=== PATIENT | female | born 1945 | race Caucasian/White ===

== ENCOUNTER 2018-05-04 19:12 | Inpatient (IN) | payer MEDICARE ==
[~2018-05-04] VITALS: Ht 160 cm; Wt 83.0 kg
--- NOTE | ~2018-05-04 | CON ---
[address] [address] CONSULTATION Name: HARPAL HUNTER Room: 211-P ADM IN M.R.#: [id number] Admission: 05/04/18 Attend Phys: Jeremy Delgado Discharge: Date of : 43 Report #: [id number] THIS REPORT FOR: //name// CC: FAM physician/PCP Alvaro Fish DATE OF SERVICE: 05/09/2018 ROOM NUMBER: 211-P ATTENDING PHYSICIAN: Chris Aaron MD DIAGNOSIS: Superior vena cava syndrome; highly suspicious for malignant neoplasm. HISTORY OF PRESENT ILLNESS: Radiation Oncology consultation has been requested in this 73-year-old female admitted to [facility] with symptoms of increasing shortness of air and facial swelling. CT of the chest with IV contrast 05/04/2018 revealed a right upper mediastinal and hilar mass with mediastinal lymphadenopathy and compression of the superior vena cava. Additional studies included a CT of the abdomen and pelvis showing no evidence of metastatic disease. However, a sclerotic appearance was noted to the L3 vertebral body. Bone scan revealed solitary uptake at L3 felt to be nonspecific. MRI of the brain 05/07/2018, noted several small enhancing foci suspicious for brain metastasis. This could also represent small infarcts. The largest measured 8 mm. No surrounding edema. The patient underwent stent placement in her superior vena cava on 05/07/2018. Her facial swelling promptly resolved and her breathing improved. She is scheduled for biopsy on 05/10/2018. We are asked to see her to discuss the role of radiation therapy. PAST MEDICAL/SURGICAL HISTORY: COPD; coronary artery disease, status post placement of right coronary artery stent; status post cardiac catheterization; hypertension. No prior cancer, no prior chemotherapy or radiation therapy, no pacemaker, no autoimmune disorder. ALLERGIES: PENICILLIN. MEDICATIONS: On admission, please see the patient chart. She has been on home O2, 4 liters nasal cannula for 5-6 years. SOCIAL HISTORY: The patient is . She has 3 sons. She is a former smoker, 30 years (44-[id number]-[id number] history), discontinued several years ago. 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 FAMILY HISTORY: Mother had cervix cancer. Father, prostate cancer. [place] [address] CONSULTATION Name: HARPAL HUNTER Room: [address]#: [id number] Admission: 05/04/18 Attend Phys: Jeremy Delgado Discharge: Date of : 43 Report #: [id number] REVIEW OF SYSTEMS: A 12-point review of systems is reviewed and otherwise negative including no unusual headaches, seizures, weight loss or bone pain. She has chronic low back pain. PHYSICAL EXAMINATION: GENERAL: The patient is a well-developed, well-nourished female in no acute distress at rest. She is wearing O2 per nasal cannula. HEENT: Unremarkable. NECK: Without lymphadenopathy or thyromegaly. LUNGS: Diminished breath sounds bilaterally, otherwise clear. CARDIOVASCULAR: Regular rate and rhythm without murmur. Mild collateral circulation on the anterior chest wall noted. ABDOMEN: Soft and nontender. No masses or organomegaly. MUSCULOSKELETAL: No back or bony percussion tenderness. EXTREMITIES: No lymphedema. NEUROLOGIC: Nonfocal. SKIN: No unusual bruises or rash. LYMPH NODE ASSESSMENT: No palpable lymphadenopathy. RADIOGRAPHIC DATA: Please see above for results of her CT scan of the chest, abdomen, and pelvis, bone scan and MRI of the brain. In addition, the patient had bilateral mammograms showing skin thickening diffusely, right greater than left, which was nonspecific, could be related to the patient's mediastinal tumor and SVC syndrome. Lower extremity venous Doppler showed no evidence of DVT. LABORATORY DATA: CBC on admission, WBC is 4.1, hemoglobin 11.7, hematocrit 37.5, platelet count 300K. Chemistry profile within normal range; slightly elevated AST 77. PFTS: Office spirometry, FEV1 of 0.8, 39% of predicted, FEV1/FVC 47%, has been on O2 approximately 5 years. IMPRESSION: Large right mediastinal mass with superior vena cava syndrome, suspicious for neoplasm. Biopsy scheduled for 05/10/2018. MRI of the brain showing possible small metastasis, but could not rule out infarcts, will need close surveillance followup. Sclerotic L3 vertebral body, will also need close followup. RECOMMENDATIONS: We will await pathology report. Once pathology is available, we will need a treatment plan for her SVC syndrome. We will follow her brain lesions closely with repeat MRI in 6-8 weeks. I will give her a followup appointment as an outpatient. [address] [place] [address] CONSULTATION Name: HARPAL HUNTER Room: [address] IN M.R.#: [id number] Admission: 05/04/18 Attend Phys: Jeremy Delgado Discharge: Date of : 43 Report #: [id number] Thank you for the opportunity to see this patient in consultation. By: [id number] [id number] Maldonado MD /nt
[2018-05-04 19:16] VITALS: BP 194/85
[2018-05-04] MEDS ORDERED: BISOPROLOL FUMAR5 MG PO (19:41)
[2018-05-04] MEDS ORDERED: COZAAR 25 MG TA25 M1 PO (19:42)
[2018-05-04] MEDS ORDERED: CLONAZEPAM 1 MG1 M1 PO (19:43)
[2018-05-04] MEDS ORDERED: ASPIR 8181 MG PO (19:43)
[2018-05-04] MEDS ORDERED: VENTOLIN HFA 1818 GM INH (19:44)
[2018-05-04] MEDS ORDERED: MUCINEX600 MG PO (19:46)
[2018-05-04 20:10] LABS: ABSOLUTE BASOPHILS 0.1 thou/uL (0.0-0.2); ABSOLUTE EOSINOPHILS 0.3 thou/uL (0.0-0.7); ABSOLUTE LYMPHOCYTES 2.1 thou/uL (0.8-5.3); ABSOLUTE NEUTROPHILS 7.5 thou/uL (1.6-8.1); BASOPHILS 0.5 %; EOSINOPHILS 2.5 %; HEMATOCRIT 37.5 % (37.0-47.0); HEMOGLOBIN 11.7 gm/dL (12.0-15.0); LYMPHOCYTES 19.4 %; MCH 27.9 pg (26.0-34.0); MCHC 31.2 g/dL (28.0-37.0); MCV 89.4 fL (80.0-100.0); MONOCYTES 9.1 %; MPV 8.4 fl. (7.2-11.1); NUCLEATED RBCS 0 /100WBC; PLATELET COUNT* 300 thou/uL (150-400); POLYS 68.5 %; RBC 4.19 mil/uL (4.20-5.00); RDW-CV 14.3 % (10.5-14.5); WBC 10.9 thou/uL (4.0-11.0)
[2018-05-04 20:17] LABS: BE 9.4 mmol/L (-2 to +3); HCO3 38.3 mmol/L (22.0-26.0); PO2 101.7 mmHg (75.0-100.0); pH 7.318 (7.340-7.450)
[2018-05-04 20:19] LABS: PCO2 76.4 mmHg (35.0-45.0)
[2018-05-04 20:19] LABS: ANION GAP 0 mmol/L (7-16); BUN 10 mg/dL (7-18); CALCIUM 9.6 mg/dL (8.5-10.1); CHLORIDE 97 mmol/L (98-107); CO2 40 mmol/L (21-32); CREATININE 0.5 mg/dL (0.6-1.3); GLUCOSE 110 mg/dL (70-99); POTASSIUM 3.9 mmol/L (3.5-5.1); SODIUM 137 mmol/L (136-145)
[2018-05-04 20:21] LABS: APTT 26.1 Seconds (25.0-31.3); PROTIME 10.6 Seconds (9.20-11.50)
[2018-05-04 20:29] LABS: ALBUMIN 3.1 g/dL (3.4-5.0); ALKALINE PHOSPHATASE 128 U/L (46-116); MAGNESIUM 1.6 mg/dL (1.8-2.4); NT-PRO BRAIN NAT PEPTIDE 146 pg/mL (<300); SGOT 77 U/L (15-37); SGPT 53 U/L (30-65); TOTAL BILIRUBIN 0.3 mg/dL (<0.1-1.0); TOTAL PROTEIN 7.6 g/dL (6.4-8.2); TROPONIN-I LEVEL <0.06 ng/mL (<0.06)
[2018-05-04 22:39] VITALS: BP 145/59
[2018-05-04] MEDS ORDERED: CLONIDINE0.1 PO (23:13)
[2018-05-04] MEDS ORDERED: VITAMIN D5000 UNIT PO (23:14)
[2018-05-04 23:15] VITALS: BP 148/56
[2018-05-04] MEDS ORDERED: BYSTOLIC 5 MG5 M1 PO (23:16)
--- NOTE | 2018-05-05 02:57 | NUR ---
ASSUMED CARE OF PT AT 2300 FROM THE ER. PT IS ALERT AND ORIENTED. VSS. NO COMPLAINTS OF PAIN. PT REPORTS SOA. PT HAS BIPAP ON AT THIS TIME AND IS TOLERATING WELL. PT IS IN SINUS RYTHM ON THE TELEMETRY. PT IS RESTING COMFORTABLY IN BED. RESPIRATIONS ARE EVEN AND NONLABORED. WILL CONTINUE TO MONITOR PT.
[2018-05-05 04:00] VITALS: BP 127/62
[2018-05-05 06:27] LABS: BE 5.4 mmol/L (-2 to +3); HCO3 33.2 mmol/L (22.0-26.0); PO2 70.5 mmHg (75.0-100.0)
[2018-05-05 08:00] VITALS: BP 145/59
--- NOTE | 2018-05-05 08:00 | NUR ---
PT RESTING IN BED, APPEARS ALERT O X 4, DENIES CHEST PAIN, SOB, PAIN OR DISCOMFORT, ON BIPAP, 35% fIO2, PIV R AC, SL
--- NOTE | 2018-05-05 10:40 | NUR ---
DR WHITAKER roundmaura, states okay to stay off bipap, tke rx, go for radiology
--- NOTE | 2018-05-05 10:55 | EKG ---
[place] [address] ELECTROCARDIOGRAM REPORT Name: HARPAL HUNTER Room: [address] ADM IN .R.#: [id number] Admission: 05/04/18 Attend Phys: Jeremy Delgado Discharge: Date of : 43 Report #: [id number] THIS REPORT FOR: //name// [facility] ED Test Date: 2018-05-04 Test Time: 19:55:34 Pat Name: HARPAL HUNTER Department: Room: [facility] Gender: F Rehab Department Manager: ROGER : 1945 Requested By: Trisha Overton Order Number: [id number] MD: Claudio Jaramillo Measurements Intervals [place] Rate: 85 P: 64 LA: 136 QRS: -87 QRSD: 129 T: 33 QT: 402 QTc: 478 Interpretive Statements Sinus rhythm RBBB and LAFB Borderline ST elevation, lateral leads No previous ECG available for comparison Electronically Signed On 05-05-2018 10:55:05 CDT by Claudio Jaramillo [email or web address] <ELECTRONICALLY SIGNED> By: Claudio Jaramillo MD, [facility] 05/05/18 1055 54 54 Claudio Jaramillo MD, [facility] /EPI
[2018-05-05 12:00] VITALS: BP 183/69
--- NOTE | 2018-05-05 13:52 | NUR ---
Pt is A&O. Resides at home with her . Independent with ADLs. Pt wears home o2 continuous. No hx of HH or SNF. Supportive family that is invovled in POC. [place] Joaquin following.
[2018-05-05 14:00] VITALS: BP 155/61
[2018-05-05 16:25] LABS: BE 8.8 mmol/L (-2 to +3); HCO3 37.3 mmol/L (22.0-26.0); PO2 90.5 mmHg (75.0-100.0); pH 7.331 (7.340-7.450)
[2018-05-05 16:26] LABS: PCO2 72.2 mmHg (35.0-45.0)
[2018-05-05 20:30] VITALS: BP 162/84
[2018-05-06] VITALS (7 sets, daily range): BP systolic 126–158; BP diastolic 49–85
--- NOTE | 2018-05-06 02:14 | NUR ---
ASSUMED CARE OF PT AT 1900. PT IS ALERT AND ORIENTED. VSS. PERLAM. PT IS ON 4 LITERS OF O2 WHILE AWAKE. PT IS ON BIPAP WHILE SLEEPING. PT IS IN SINUS RYTHM ON THE TELEMETRY. PT IS SLEEPING QUIETLY IN BED. RESPIRATIONS ARE EVEN AND NONLABORED. WILL CONTINUE TO MONITOR PT.
[2018-05-06 06:03] LABS: HEMATOCRIT 35.7 % (37.0-47.0); HEMOGLOBIN 11.2 gm/dL (12.0-15.0); MCH 28.3 pg (26.0-34.0); MCHC 31.4 g/dL (28.0-37.0); MCV 90.3 fL (80.0-100.0); MPV 8.4 fl. (7.2-11.1); RBC 3.95 mil/uL (4.20-5.00); RDW-CV 14.2 % (10.5-14.5); WBC 9.5 thou/uL (4.0-11.0)
[2018-05-06 06:14] LABS: ALBUMIN 2.8 g/dL (3.4-5.0); CALCIUM 9.3 mg/dL (8.5-10.1); CREATININE 0.8 mg/dL (0.6-1.3); MAGNESIUM 1.6 mg/dL (1.8-2.4); POTASSIUM 4.2 mmol/L (3.5-5.1); TOTAL BILIRUBIN 0.2 mg/dL (<0.1-1.0); TOTAL PROTEIN 7.2 g/dL (6.4-8.2)
[2018-05-06 06:15] LABS: BE 8.2 mmol/L (-2 to +3); HCO3 36.3 mmol/L (22.0-26.0); pH 7.335 (7.340-7.450)
[2018-05-06 06:22] LABS: PCO2 69.6 mmHg (35.0-45.0); PO2 56.4 mmHg (75.0-100.0)
--- NOTE | 2018-05-06 08:19 | CON ---
[address] [address] CONSULTATION Name: TRENTONCARMINEHARPAL G Room: [address] IN M.R.#: [id number] Admission: 05/04/18 Attend Phys: Jeremy Delgado Discharge: Date of : 43 Report #: [id number] THIS REPORT FOR: //name// CC: DALILA physician/PCP Alvaro Fish REQUESTING PHYSICIAN: Dr. Flores. REASON FOR CONSULTATION: Abnormal CAT scan, COPD. DISCUSSION: The patient is a 73-year-old woman who is known to me from the office. She has a history of very severe COPD. She is O2, though has not been steroid dependent. She has normally gotten most of her care over at [facility]. We do not have any records on her here at [facility]. She has a history of very severe COPD. Last spirometry done in our office revealed an FEV1 of only 0.80, which was 39% of predicted. Her FEV1/FVC ratio is 47%. Mid flows were severely decreased. At home, she is managed with a Ventolin inhaler. She does do occasionally 3 puffs every 4 hours. She has been intolerant to all anticholinergics I have given her in the past. She has also had issues with albuterol via nebulizer, so she rarely uses that. She has intermittently not tolerated oral steroids well. She has had intermittent cramps, also complains of diarrhea coming from that. Besides her severe COPD, she also has a history of coronary artery disease. Has had stents placed in the past. She did have a followup cardiac catheterization done in February of this year. This was done because of dyspnea and possible angina, showed her right coronary stent was patent, no other occlusive disease was noted. She did have a chest x-ray done also in February. Raised a question of developed some mild vascular congestion. She also has a history of hypertension. She is not on any anticholinergics. Has had issues with significant epistaxis in the past requiring packing. SOCIAL HISTORY: She is . Former smoker, quit in 2014. Has over 42-lvsk-frsd smoking history. 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 FAMILY HISTORY: Positive for asthma, ovarian cancer. REVIEW OF SYSTEMS: A 12-point ROS was done. Note positives above. She had increasing shortness of breath. Describes feeling that she is "drowning." Has not had much in the way of cough or sputum production. She denies any difficulty swallowing. She has had some periods [place] [address] CONSULTATION Name: HARPAL HUNTER Room: [address] IN ..#: [id number] Admission: 05/04/18 Attend Phys: Jeremy Delgado Discharge: Date of : 43 Report #: [id number] triggered her visit to the ED. Denies any falls. She has not had any difficulty swallowing. At times, she may have trouble with very large pills. Her appetite has been good. Generally, her weight has been stable. She had gained weight after she quit smoking, but had been able to lose some that was all intentional. She has noted some lower extremity edema. PHYSICAL EXAMINATION: GENERAL: She is seen in her room. Just been taken off BiPAP. Has O2 running via nasal cannula. She is alert, conversant, and able to speak in full sentences. She is somewhat emotional. HEENT: Head is normocephalic and atraumatic. Sclerae nonicteric. Mucous membranes do look a little dry. NECK: Negative for adenopathy. May have just some minimal neck vein fullness. Has just minimal vessel seen anterior chest wall. Does not appear to have much edema in her upper neck and upper extremities. HEART: Regular rate. She is mildly tachycardic. No S3 is heard. Grade 1/6 systolic murmur. LUNGS: Show breath sounds to be diminished. She has a prolonged expiratory phase. She has some inspiratory and expiratory wheezes heard bilaterally. No chest wall abnormalities are noted. No CVA tenderness. ABDOMEN: Soft. No appreciable hepatosplenomegaly is noted. Radial pulses are present. LOWER EXTREMITIES: She does have some trace pretibial edema. SKIN: Warm and dry. NEUROLOGIC: She is alert and oriented x 3. LABORATORY AND X-RAY FINDINGS: A CT of her chest was reviewed. I have also reviewed that with Dr. Hurley who was the reading radiologist. She does have a very large mass seen in the right upper mediastinal area and right hilar mass. She does have some narrowing of the superior vena cava. Does appear to be compressing the SVC, though it is not completely occluded. No PE seen. Has emphysematous changes noted throughout. No pleural effusions are noted. White blood cell count is 10,900, hemoglobin 11.7. Differential was unremarkable. On her chemistry, potassium is 3.9, BUN of 10, creatinine of 0.5. Lactic acid 0.6. AST 77, ALT 53, alkaline phosphatase 128. ProBNP was 146. Albumin 3.1. Blood cultures were sent. IMPRESSION: 1. Large mediastinal/right hilar mass. Appearance is highly worrisome for malignancy. With her long smoking history, primarily I am concerned this could represent a lung cancer. Whether could also be a lymphoma, though I find that less likely. Has compression of the superior vena cava, though does not have a joseph superior vena cava syndrome at this time. 2. Very severe chronic obstructive pulmonary disease. Her O2 though has not been steroid dependent. Hypercapnia noted, some of which is chronic. 3. Coronary artery disease. Recent cardiac catheterization did not reveal any [facility] [address] [place] [address] CONSULTATION Name: HARPAL HUNTER Room: [address] IN [facility]#: [id number] Admission: 05/04/18 Attend Phys: Jeremy Delgado Discharge: Date of : 43 Report #: [id number] significant occlusive disease. PLAN: 1. Discussed with Dr. Hurley. He does believe he would be able to biopsy this lesion. She is a poor candidate for bronchoscopy given the sedation that would be required with her hypercapnia. 2. Continue bronchodilator therapy at this time. We will use straight albuterol. She has been intolerant to anticholinergics in the past. 3. Follow up blood gases. 4. She is now quite anxious to be discharged. I will see how she does. Get the biopsy done and hopefully discharge shortly within 24 hours depending on how she does. We will need Oncology followup once catheterization is finalized. 5. I was able also to discuss briefly with her . <ELECTRONICALLY SIGNED> By: Anamaria Beard MD 05/06/18 0819 1044 1952MD shey Francois
--- NOTE | 2018-05-06 09:55 | NUR ---
ASSUMED CARE OF PT THIS AM AROUND 0715- COMMERCIAL REPRESENTATIVE IN PLACE ORDERED, TRACING SR- UPON ASSESSMENT PT NOTED TO BE SITTING UP IN BED SIDE CHAIR, AT SIDE VISITING- PT A&O X4- CONTINENT OF BOWEL AND BLADDER- ASSIST X1 WITH RW FOR TRANSFERS- DIMINISHED LUNG SOUNDS NOTED, RESP EVEN AND [id number]-EXS, O2 SAT 93% ON 4L VIA NC-ABODMEN SOFT/ROUND/NON-TENDER, BS X4 QUADS- PT REPORTS TO HAVE HAD BM THIS AM- IV NOTED TO RIGHT AC INTACT, IVF INFUSSING PRESCIBED- IV ABT GIVEN THIS AM PRESCIBED, NO ADVERSE REACTIONS TO NOTE- PORT/CATH TO BE PLACED ALONG WITH SVC R/T LUNG MASS, UNABLE TO COMPLETE TILL PT OFF ALL BLOOD THINNERS X5 DAYS- ASPIRIN NOTED TO HAVE BEEN D/C' 05/05/18- LOVENOX D/C'D THIS AM- BONE SCAN TO BE COMPLETED TODAY ORDERED- MG NOTED TO BE 1.6 THIS AM, CURRENLTY BEING REPLACED PER PROTOCOL- PT DENIES ANY C/O PAIN/DISCOMOFRT AT THIS TIME- CALL LIGHT AND PERSONAL BELONGINGS WITH IN REACH- HOURLY ROUNDS IN PLACE R/T SAFETY/NEEDS- ALL NEEDS MET AT THIS TIME-WCTM
--- NOTE | 2018-05-06 14:10 | NUR ---
CM spoke with pulm regarding Pt needing a trilogy. Spoke with Celina at [facility] and faxed trilogy referral. Following.
--- NOTE | 2018-05-06 16:46 | NUR ---
PT BRAXTON RESTING IN BED SIDE CHAIR, AT SIDE- SENIOR FIRMWARE ENGINEER IN PLACE ORDERED, TRACING SR/ST THIS SHIFT- IV TO RIGHT AC NOTED TO FALL OUT WITH NEW IV 20 GAUGE PLACED TO RIGHT FA- IVF D/C'D THIS SHIFT- MG REPLACED THIS SHIFT PER PROTOCOL WITH REDRAW AT 1453 NOTED TO BE WNL AT 1.9- BONE SCAN AND CHEST X-RAY COMPELTED THIS SHIFT ORDERED, RESULTS NOTED IN MEDITECH- SOLU-MED DECREASED THIS SHIFT PER PULMONARY THIS SHIFT- GOOD PO INTAKE NOTED THIS SHIFT WITH MEALS- DENIES ANY C/O PAIN/DISCOMFORT AT THIS TIME- CONTINUES ON 4L VIA NC INDICATED- CALL LIGHT AND PERSONAL BELONGINGS WITH IN REACH- MAKES NEEDS KNOWN- ALL NEEDS MET AT THIS TIME-WCTM
[2018-05-07] VITALS (20 sets, daily range): BP systolic 110–185; BP diastolic 47–95
--- NOTE | 2018-05-07 05:00 | NUR ---
ASSUMED CARE OF PT AT 1900. PT IS ALERT AND ORIENTED. VSS. PERRLA. NO COMPLAINTS OF PAIN. UP WITH A WALKER AND STAND BY ASSIST. PT IS ON 4 LITERS O2 WHILE AWAKE AND BIPAP WHILE ASLEEP. PT HAS BEEN WEARING BIPAP THROUGHOUT THE NIGHT. PT IS IN SINUS RYTHM ON THE TELEMETRY. PT IS RESTING COMFORTABLY IN BED. RESPIRATIONS ARE EVEN AND NONLABORED. WILL CONTINUE TO MONITOR PT.
[2018-05-07 05:07] LABS: HEMOGLOBIN 11.3 gm/dL (12.0-15.0); MCH 28.2 pg (26.0-34.0); MCHC 31.3 g/dL (28.0-37.0); MCV 90.2 fL (80.0-100.0); MPV 8.8 fl. (7.2-11.1); RBC 3.99 mil/uL (4.20-5.00); RDW-CV 14.6 % (10.5-14.5); WBC 17.3 thou/uL (4.0-11.0)
[2018-05-07 05:15] LABS: ANION GAP < 0 mmol/L (7-16); BUN 21 mg/dL (7-18); CALCIUM 9.9 mg/dL (8.5-10.1); CHLORIDE 99 mmol/L (98-107); CREATININE 0.8 mg/dL (0.6-1.3); GLUCOSE 111 mg/dL (70-99); POTASSIUM 3.8 mmol/L (3.5-5.1); SODIUM 137 mmol/L (136-145)
[2018-05-07 05:20] LABS: CO2 40 mmol/L (21-32)
--- NOTE | 2018-05-07 10:07 | NUR ---
ASSUMED CARE OF PT THIS AM AROUND 714- DIRECTOR PACKAGING IN PLACE ORDERED, TRACING SR- UPON ASSESSMENT PT NOTED TO BE UP IN BED SIDE CHAIR, WATCHING TV- PT A&O X3 WITH FORGETFULLNESS NOTED- CONTINENT OF BOWEL AND BLADDER- ASSIST X1 WITH RW FOR TRANSFERS- COURSE LUNG SOUNDS WITH OCCASSIONAL COUGH, SMALL COPIOUS SPUTUM NOTED- RESP EVEN AND UN-LABORED- VSS, O2 SAT 96% ON 4L VIA NC- ABDOMEN SOFT/ROUND/NON-TENDER, BS X4 QUADS- LAST BM REPORTED THIS AM- IV NOTED TO RIGHT FA INTACT AND SL- PT OFF UNIT MOST THIS AM HAVING PROCEDURES COMPLETED ORDERED- XANAX ORDERED PRE MRI R/T REPORTED CLOSTERPHOBIA- PT DENIES ANY C/O PAIN/DISCOMFORT THIS AM- ALL NEEDS MET AT THIS TIME-WCTM
--- NOTE | 2018-05-07 10:22 | NUR ---
Pt's trilogy will be delivered this afternoon
--- NOTE | 2018-05-07 14:58 | CON ---
[address] [address] CONSULTATION Name: TRENTONCARMINEHARPAL G Room: [address] IN ..#: [id number] Admission: 05/04/18 Attend Phys: Jeremy Delgado Discharge: Date of : 43 Report #: [id number] THIS REPORT FOR: //name// CC: DALILA physician/PCP Alvaro Fish DATE OF SERVICE: 05/05/2018 REASON FOR CONSULTATION: Lung mass. HISTORY OF PRESENT ILLNESS: A 73-year-old female who was admitted because of progressive shortness of breath and cough for the last few days. She has been a heavy smoker for the last [address] scan to rule out PE revealed large right upper lobe mass with extension of the right hilum and right mediastinum. There was a compression of the superior vena cava with maybe invasion of it. The patient has been on the BiPAP in the morning. She had a venous Doppler, which showed no evidence of a DVT. By the time of evaluation, the patient has been feeling better. She is off the BiPAP and I discussed the case with Dr. Beard earlier today with plan for biopsy. REVIEW OF SYSTEMS: All systems reviewed. It was negative except the above. PAST MEDICAL HISTORY: COPD and coronary artery disease, status post stent. MEDICATIONS: Per admission list. ALLERGIES: PENICILLIN. SOCIAL HISTORY: She has been former smoker. She quit more than one year ago. She smoked for 30 years around 1 to 1-1/2 pack per day. She denies any alcohol or drug abuse. FAMILY HISTORY: Noncontributory. PHYSICAL EXAMINATION: VITAL SIGNS: Temperature 36.7, pulse 75, respirations 16, blood pressure is 155/61, SpO2 is 99% on 4 L. GENERAL: The patient was sitting in chair, was not in acute distress. LUNGS: Decreased breathing sounds bilaterally. CARDIOVASCULAR: The patient had prominent right-sided cervical veins and she had facial swelling. She reported also pain and tenderness in the right upper extremity. EXTREMITIES: Lower extremities: No edema, no cyanosis, no clubbing. LABORATORY DATA: Today, WBC 10.9, hemoglobin 11.7, platelets 300. Creatinine 0.5, ALT 77, AST is 53, alkaline [place] [address] CONSULTATION Name: HARPAL HUNTER Room: [address]#: [id number] Admission: 05/04/18 Attend Phys: Jeremy Delgado Discharge: Date of : 43 Report #: [id number] IMAGING: As mentioned above. ASSESSMENT AND PLAN: A 73-year-old female who has been heavy smoker with chronic obstructive pulmonary disease, presented with respiratory failure and hypercapnic, was on BiPAP. Her CT scan showed a large right upper mediastinal mass with mediastinal lymphadenopathy. There is a compression of the superior vena cava. The patient is still having symptoms including facial swelling. She reported pain in the right arm. RECOMMENDATIONS: 1. I agree with initially obtaining a biopsy. However, the patient has been on aspirin for also possibility of fast growing malignancy like small cell. I do recommend stent placement by interventional radiology, also placement of port in and preparation for starting systemic therapy. Whether this is lymphoma or lung cancer, a port will be needed. 2. To complete staging, I would like to obtain CT of the abdomen and pelvis and also a bone scan. <ELECTRONICALLY SIGNED> By: Chris Aaron MD 05/07/18 1458 1641 [id number] Aaron MD /nt
--- NOTE | 2018-05-07 18:12 | NUR ---
PT BRAXTON RESTING IN BED, FAMILY AT SIDE VISITING- PT DOWN FOR SVC STENT PLACEMENT THIS SHIFT- NOTED TO HAVE LEFT UNIT AT 1545, AND RETURNED AT 1740- 1 STENT SUCCESSFULLY REPORTED TO HAVE BEEN PLACED WITH ACCESS THROUGH RIGHT GROIN-RIGHT GROIN SIGHT WITH GAUZE INPLACE AND COVERED WITH TRANSPARENT DRESSING- NO HEMATOMA TO SIGHT NOTED- VS 97.9 20 172/74 92 95% ON 4L VIA NC- PT DENIES ANY PAIN AT TIME OF RETURN TO UNIT- RADIATION ONCOLOGIST CONSULTED AND OCTAVIO LLOYD HERE TO SEE PT, BUT UNABLE DUE TO BEING OFF UNIT WITH SVC PLACEMENT; STATES SHE WILL RETURN THURSDAY TO FURTHER EVAL- POST PROCEDURE VS AND GROIN CHECKS IN PLACE PER PROTOCOL- NO NEW CHANGES NOTED TO MEDS POST PRCEDURE- MRI COMPLETED ALONG WITH ST OF HEAD AND MAMMOGRAM WITH RESULTS NOTED IN MEDITECH- FLORASTOR 250MG BID ADDED TO MEDICATIONS PER PULMONARY- PULMONARY RECOMMENDS CONTINUED TX IN HOSPITAL AT THIS TIME R/T BREATHING PROBLEMS CONTINUED WITH LAYING IN BED AND NON-COMPLIANCE WITH MEDICATIONS WHILE AT HOME- CALL LIGHT AND PERSONAL BELONGINGS WITH IN REACH- FREQUENT CHECKS IN PLACE R/T SAFETY/NEEDS- ALL NEEDS MET AT THIS TIME-[facility]
[2018-05-08 04:00] VITALS: BP 123/57
--- NOTE | 2018-05-08 04:49 | NUR ---
ME AAOX4 RESP REG AND UNALBORED SKIN W/D PT CAN BECOME SLIGHTLY CONFUSED AT TIMES. PT S/P SVC STENT PLACEMENT. DRESSING TO RIGHT GROIN CLEAN DRY AND INTACT. NO BLEEDING OR HEMATOMA NOTED. PEDAL PULSE 2+. VSS AND NO ACUTE CHANGES DURING SHIFT. PT WORE HOME TRIOPLGY MACHINE WHEN ASLEEP. LIQUID YEAST SUPERVISOR INTACT WTIH ALARMS SET. WILL CONITNUE TO MONITOR
--- NOTE | 2018-05-08 07:45 | NUR ---
ASSUMED CARE OF PT ASSESSED AND DOCUMENTED. PT IS ON CARDIAC [id number] TRACING SR HR 79. PT IS A&O WITH NO C/O PAIN. VSS WNL. PT IS AFEBRILE. SHE REMAINS ON 6L OF 02. BED IS IN LOW POSSITION CALL LIGHT IS IN REACH. WM.
[2018-05-08 08:00] VITALS: BP 155/56
[2018-05-08 12:24] VITALS: BP 115/37
[2018-05-08 16:00] VITALS: BP 142/82
[2018-05-08 20:00] VITALS: BP 126/81
[2018-05-09] VITALS (8 sets, daily range): BP systolic 120–196; BP diastolic 50–99
--- NOTE | 2018-05-09 05:55 | NUR ---
PATIENT RESTED IN BED. PATIENT IS NOT SHOWING SIGNS OF RESPIRATORY DISTRESS. DOCTOR FULLBRIGHT NOTIFIED OF PATIENT'S INCREASE BLOOD PRESSURE, SEE ORDERS. FALL PRECAUTIONS IN PLACE, CALL LIGHT WITH IN REACH, HOURLY ROUNDING OBSERVED.
--- NOTE | 2018-05-09 07:45 | NUR ---
ASSUMED CARE OF PT ASSESSED AND DOCUMENTED. PT IS ON CARDIAC MONITER TRACING SR BBB HR 87. PT' S BP WAS 196/99. GAVE PT IV HYDRALAZINE 10 MG. THIS WAS EFFECTIVE. PT IS AFEBRILE. SHE CONT ON 5L OF 02. PT IS CONCERNED FOR HER AND HER DIAGNOSIS. LET PT TALK. SHE WAS IN BETTER SPIRITS AFTER VOICING HER CONCERNS. PT SITTING IN BEDSIDE CHAIR. CALL LIGHT IS IN REACH. WM.
[2018-05-09 14:42] LABS: URINE BILIRUBIN NEGATIVE (Negative); URINE BLOOD NEGATIVE (Negative); URINE CLARITY CLEAR; URINE COLOR YELLOW; URINE GLUCOSE-RANDOM NEGATIVE (Negative); URINE KETONES NEGATIVE (Negative); URINE LEUKOCYTES-REFLEX NEGATIVE (Negative); URINE NITRITE-REFLEX NEGATIVE (Negative); URINE PROTEIN NEGATIVE (Negative); URINE SPECIFIC GRAVITY 1.015 (1.005-1.030); URINE UROBILINOGEN 0.2 E.U./dl (0.2-1.0)
--- NOTE | 2018-05-09 17:03 | NUR ---
PT HAS RESTED AND WATCHED TV IN BEDSIDE CHAIR WITH AT BEDSIDE. EDUCATION GIVEN ON DEMAND. HOURLY ROUNDING COMPLETE. NO C/O PAIN OR DISCOMFORT.
[2018-05-10] VITALS (15 sets, daily range): BP systolic 139–194; BP diastolic 53–97
[2018-05-10 04:53] LABS: HEMATOCRIT 35.9 % (37.0-47.0); HEMOGLOBIN 11.4 gm/dL (12.0-15.0); MCH 28.5 pg (26.0-34.0); MCHC 31.7 g/dL (28.0-37.0); MCV 89.8 fL (80.0-100.0); MPV 8.6 fl. (7.2-11.1); RDW-CV 14.5 % (10.5-14.5); WBC 11.9 thou/uL (4.0-11.0)
[2018-05-10 04:56] LABS: APTT 23.5 Seconds (25.0-31.3); INR 1.1; PROTIME 10.8 Seconds (9.20-11.50)
--- NOTE | 2018-05-10 05:04 | NUR ---
PATIENT RESTED IN BED, NO ACUTE CHANGES. PATIENT DID NOT SHOW SIGNS OF DISTRESS. FALL PRECAUTIONS IN PLACE, CALL LIGHT WITH IN REACH, HOURLY ROUNDING OBSERVED, BED ALARM ON.
[2018-05-10 05:12] LABS: CREATININE 0.6 mg/dL (0.6-1.3); POTASSIUM 3.6 mmol/L (3.5-5.1)
--- NOTE | 2018-05-10 09:56 | NUR ---
ASSUMED CARE OF PT THIS AM AROUND 0715- BI SOLUTIONS ARCHITECT IN PLACE ORDERED, TRACING SR- UPON ASSESSMENT PT NOTED TO BE UP IN BED SIDE CHAIR WATCHING TV- PT A&O X4- CONTINENT OF BOWEL AND BLADDER- ASSIST X1 WITH TRANSFERS- DIMINISHED LUNG SOUNDS NOTED, RESP EVEN AND UN-LABORED- OCASSIONAL COUGHT NOTED-VSS, ,O2 SAT 100% ON 5L VIA NC- ABDOMEN SOFT/OBESE/NON-TENDER, BS X 4 QUADS- PT REPORTS TO HAVE HAD BM THIS AM- IV NOTED TO LEFT HAND INTACT AND SL- PT CURRENLTY NPO FOR PLANNED PORT PLACEMENT AND BIOPSY THIS SHIFT-PT DENIES ANY C/O PAIN/DISCOMFORT AT THIS TIME- CALL LIGHT AND PERSONAL BELONGINGS WITH IN REACH-HOURLY ROUNDS IN PLACE R/T SAFETY/NEEDS- ALL NEEDS MET AT THIS TIME-WCTM
--- NOTE | 2018-05-10 17:38 | NUR ---
PT CURRENLTY RESTING IN BED- FAMILY AT SIDE VISITING-PT OFF UNIT FROM AROUND 1420 AND RETURNED AT 1717 THIS SHIFT POST PORT CATH PLACEMENT AND BIOPSY PRESCIBED- SUCCESSFUL PORT PLACEMENT NOTED WITH DRESSING C/D/I- RIGHT MID UPPER CHEST INCISSION NOTED R/T BIOPSY SITE WITH BANDAIDE IN PLACE- VS NOTED 97.9 20 175/79 86 100% 5L VIA NC- TRACE PNEUMOTHORAX REPORTED AND ALVEOLAR HEMMORRHAGE- VS POST PROCEDURE IN PLACE ORDERED- CHEST X-RAY TO EVAL PNEUMO ORDERED-BEDREST IN PLACE WITH BAM SIDE COMMODE PREVILAGES ORDERED- CALL LIGHT AND PERSONAL BELONGINGS WITH IN REACH- ALL NEEDS MET AT THIS TIME-WCTM
[2018-05-11] VITALS (9 sets, daily range): BP systolic 98–158; BP diastolic 36–61
--- NOTE | 2018-05-11 04:33 | NUR ---
TYLER RESTED IN BED. PATIENT O2 ON BIPAP INCREASED DUE TO DECREASE IN O2%. PATIENT DENIED SOB. CHANCENET O2 LEVEL RETURNED TO WITH IN NORMAL LIMITS. FALL PRECAUTIONS IN PLACE, HOURLY ROUNDING OBSERVED, CALL LIGHT WITH IN REACH, HOURLY ROUNDING OBSERVED, BED ALARM ON.
[2018-05-11] MEDS ORDERED: PREDNISONE 10 M10 MG PO (08:48)
--- NOTE | 2018-05-11 10:45 | NUR ---
REC'D REPORT FROM NOC RN, ASSUMED CARE OF PT APPROX 0730. PT UP TO CHAIR, A&O X4, ABLE TO COMMUNICATE NEEDS TO STAFF. [facility] [employer] SOC[employer] WORKER IN PLACE, SR, BBB. O2 SATS >92%, 5L/MIN NC. ASSESSMENT COMPLETE, DOCUMENTED. MEDS PER SEP. BED/CHAIR ALARM IN PLACE AT ALL TIMES. CALL LIGHT WITHIN REACH. APPROPRIATE USE OF CALL LIGHT FOR ASSISTANCE WITH AMBULATION. HOURLY ROUNDING FOR POSITION CHANGE, SAFETY.
--- NOTE | 2018-05-11 15:44 | NUR ---
2nd opinion completed. Pt to dc home today. CM provided Pt with PCP list, Pt to call and schedule and appt. Family in room and will transport, Pt has a portable tank in the room.
--- NOTE | 2018-05-11 16:45 | NUR ---
PT, SPOUSE AND SON IN ROOM FOR CONSULT WITH DR. AGUILAR FOR SECOND OPINION CONSULT R/T DIAGNOSIS/TREATMENT PLAN FOR PT. DR. AGUILAR GAVE PT HER CONTACT INFO. PT AND FAMILY ARE UNDECIDED WHICH PROVIDER THEY WILL CHOOSE. DR. AGUILAR STATED DURING CONSULTATION THAT SHE WOULD FOLLOW UP ON THE PATHOLOGY WITH PT/FAMILY WHEN THE RESULTS BECOME AVAILABLE.
--- NOTE | 2018-05-11 17:40 | NUR ---
PT WITH COMPLETE DC ORDER LEFT UNIT VIA WC AND NURSING STAFF. SPOUSE TO TRANSPORT PT TO HOME VIA CAR. REVIEWED DC INSTRUCTIONS AND MEDICATION LIST WITH PT. ANSWERED QUESTIONS TO HER SATISFACTION. DATA ENTRY COORDINATOR AND IV DC'D. PT IN POSSESSION OF ALL BELONGINGS. SPOUSE AND SON ACCOMPANIED PT OFF THE UNIT WITH NURSING STAFF.
--- NOTE | 2018-05-14 15:07 | PATH ---
[address] [address] PATHOLOGY RPT PROCEDURE Name: HARPAL MO Room: [address] IN .R.#: [id number] Admission: 05/04/18 Date of : 43 Discharge: 05/11/18 Report #: [id number] Path Case #: [id number] [facility] Accession Number: [id number] . 01 Material submitted: . LUNG MASS BX . 01 Clinical history: . Carcinoma versus lymphoma . 02 Diagnosis: Lung mass, biopsy: - UNDIFFERENTIATED SMALL CELL CARCINOMA. SEE COMMENT. . (ALO:kyler; 05/13/18) . . . . Please see included [facility] report [id number]. [facility]/05/13/2018 . 02 Comment: The cores reveal several to have sheets of malignant small cells involving fibrofatty tissue with, at most, minimal lung parenchyma seen. Prominent crush artifact (Azzopardi effect) is noted, although many areas of preserved malignant cells are also present. A panel of properly-controlled immunohistochemical stains performed on A2 show the following results, supporting the diagnosis: . Keratin AE1/AE3: Prominent perinuclear dot-like positivity CD56: Diffuse strong cytoplasmic / membranous positivity LCA/CD45: Negative . A separate sample submitted for flow cytometry showed no evidence for a B-cell lymphoma (Integrated Oncology specimen ID, [id number]). . Preliminary results relayed to Dr. Berna Aaron and Dr. Tuyet Herrrea on a.m. of 05/12/2018 and final results on a.m. of 05/13/2018. . Reviewed with Dr. Roxy Burton who agrees with the diagnosis. . (ALO:kyler; 05/13/18) . 02 Electronically signed: . Nathaniel Golden MD, Pathologist NPI- [id number] . [address] [place] [address] PATHOLOGY RPT PROCEDURE Name: HARPAL MO Room: [address]#: [id number] Admission: 05/04/18 Date of : 43 Discharge: 05/11/18 Report #: [id number] Path Case #: [id number] Gross description: . The specimen is received in formalin, labeled "Harpal Mo, lung mass BX", are four fragments of walton-white needle cores ranging from 0.3 cm up to 1.2 cm in length within an average 0.1 cm diameter. The specimen is entirely submitted in A1-A3. Also received is an RPMI tube labeled with patient's name and consisting of walton-white tissue. The specimen is forwarded for flow cytometric studies. (SWS; 05/11/2018) SHS/SHS . 02 Microscopic: . Special studies report received from [facility] [place], [address] [place] [address], [address], [place], [address], on case [id number], labeled with their number [id number], dated 05/12/2018. . Flow Cytometry: Hematologic Neoplasia Assessment . Clinical History Mediastinal mass . Indication for Study Evaluation for lymphoma . Specimen Mediastinal Mass Biopsy . Viability 40% (7AAD exclusion) . Interpretation Mediastinal Mass Biopsy: - In the sample analyzed, there is no evidence for a B-cell lymphoma (limited study). . Comments Hodgkin lymphoma and some large cell lymphomas cannot be categorically excluded by flow cytometric analysis. A limited panel of antibodies was performed due to low cell yield. Correlation with the morphologic findings and other clinical data is recommended. . Populations Analyzed Lymphocytes: 11% A limited panel of antibodies (kappa, lambda, CD3, CD4, CD5, CD8, CD10, CD19, CD20, CD38, CD45, and CD57) was performed due to low cell yield. There is a mixed population of B-lymphocytes (1%) and T-lymphocytes (10%). No B-cell surface light chain restriction is detected. T-cells express CD3 and CD5. Other andrade T-cell antigens are not evaluated. The CD4:[place] [address] PATHOLOGY RPT PROCEDURE Name: HARPAL MO Room: [address] IN M.R.#: [id number] Admission: 05/04/18 Date of : 43 Discharge: 05/11/18 Report #: [id number] Path Case #: [id number] is normal at 4.9:1. . CD45 Negative 89% No significant reactivity with the markers tested Events/Debris: (may represent degenerated cells, unlysed red blood cells, debris, etc.) . Morphologic Evaluation A slide was reviewed for quality audit representative purposes only. . Specimen Description Due to low cell count, the lab is unable to provide an accurate cell yield. A limited panel of antibodies was performed and approximately 2,000 events were acquired per tube. Flow cytometry data derived from an acquisition with less than 10,000 events needs to be interpreted within the context of all clinical, laboratory, and morphologic information. . Reagent(s) Used CD3, CD4, CD5, CD8, CD10, CD19, CD20, CD38, CD45, CD57, kappa, lambda . at [employer] [employer]. Roberto Wyman MD Hematopathologist . Intended Use Flow cytometry is optimally used to immunophenotypically characterize abnormal populations when they are detected. Negative flow cytometry results do not exclude lymphoma or neoplasia. Possible false negative flow cytometry results may occur in, but are not limited to, the following: neoplastic cells in Hodgkin lymphoma are not typically adequately represented by routine clinical flow cytometry; neoplastic cells may be lost or inadequately represented due to degeneration, sample processing, sampling artifact, or patchy involvement; plasma cells are typically underrepresented by flow cytometry; immature cells/blasts may be underrepresented due to hemodilution; myeloproliferative disorders and low grade myelodysplasia may not have immunophenotypic abnormalities or increased blasts. Correlation with all available clinical, laboratory, and morphologic data is always necessary to assess for the possibility of false negative flow cytometry results and to establish a diagnosis. Each marker in this analysis was used to assess for potential antigenic abnormalities or to evaluate detected abnormalities. . Disclaimer(s) This test was performed at [facility]. at [address], [place], [address] - Financial Compliance Manager: Nacho Armas MD. [email or web address] is a business unit of [employer] a wholly-owned subsidiary [place] [address] PATHOLOGY RPT PROCEDURE Name: HARPAL MO Room: [address] IN [facility].#: [id number] Admission: 05/04/18 Date of : 43 Discharge: 05/11/18 Report #: [id number] Path Case #: [id number] . Any image or images that accompany this report are sales representative metals images only and should not be used to render a diagnosis. . This test was developed and its performance characteristics determined by [email or web address]. It has not been cleared or approved by the Food and Drug Administration (FDA). The FDA has determined that such clearance or approval is not necessary. . For inquiries, the physician may contact Lab: [phone] . A complete copy of the report is on file. . Professional services performed by [facility] at [address], [place] [address]. Technical services performed by [facility]. at [address], [place] [address]. . (AMJ 05/13/2018) . 02 Pathologist provided ICD-10: C34.90 . 02 CPT . 540224, L86724, B02194 Specimen Comment: A courtesy copy of this report has been sent to Specimen Comment: [phone], . Specimen Comment: Report sent to / DR REHMAN Specimen Comment: A duplicate report has been generated due to demographic updates. Performed at: 01 [facility] [address] [place] [address] [address], [place], [place] [id number] MD Victor Manuel Vega MD Phone: [phone] Performed at: 02 [facility] [place] [address] [address], [place], [place] [id number] MD Nathaniel Golden MD Phone: [phone]
== END 2018-05-11 17:30 | disposition home or self-care (01) | DRG 981 ==
LOC: M.ERS 19:12 → M.TBA-ER 21:43 → M.2W 21:43
PROVIDERS: Internal Medicine; Internal Medicine Pulmonary Disease; Personal Emergency Response Attendant; ADMIT Internal Medicine
PROC: 5A09357 Assistance with Respiratory Ventilation, Less than 24 Consecutive Hours, Continuous Positive Airway Pressure (ICD-10-PCS; 2018-05-04)
PROC: 5A09357 Assistance with Respiratory Ventilation, Less than 24 Consecutive Hours, Continuous Positive Airway Pressure (ICD-10-PCS; 2018-05-05)
PROC: 5A09357 Assistance with Respiratory Ventilation, Less than 24 Consecutive Hours, Continuous Positive Airway Pressure (ICD-10-PCS; 2018-05-06)
PROC: 027V3DZ Dilation of Superior Vena Cava with Intraluminal Device, Percutaneous Approach (ICD-10-PCS; principal; 2018-05-07)
PROC: B5181ZZ Fluoroscopy of Superior Vena Cava using Low Osmolar Contrast (ICD-10-PCS; principal; 2018-05-07)
PROC: B54BZZA Ultrasonography of Right Lower Extremity Veins, Guidance (ICD-10-PCS; principal; 2018-05-07)
PROC: 5A09357 Assistance with Respiratory Ventilation, Less than 24 Consecutive Hours, Continuous Positive Airway Pressure (ICD-10-PCS; 2018-05-08)
PROC: B244ZZZ Ultrasonography of Right Heart (ICD-10-PCS; 2018-05-10)
PROC: 0JH60WZ Insertion of Totally Implantable Vascular Access Device into Chest Subcutaneous Tissue and Fascia, Open Approach (ICD-10-PCS; 2018-05-10)
PROC: 0WBC3ZX Excision of Mediastinum, Percutaneous Approach, Diagnostic (ICD-10-PCS; 2018-05-10)
PROC: B2141ZZ Fluoroscopy of Right Heart using Low Osmolar Contrast (ICD-10-PCS; 2018-05-10)
PROC: 02H633Z Insertion of Infusion Device into Right Atrium, Percutaneous Approach (ICD-10-PCS; 2018-05-10)
DX: C34.11 Malignant neoplasm of upper lobe, right bronchus or lung (principal); J96.21 Acute and chronic respiratory failure with hypoxia; R65.11 Systemic inflammatory response syndrome (SIRS) of non-infectious origin with acute organ dysfunction; G92 Toxic encephalopathy; J98.59 Other diseases of mediastinum, not elsewhere classified; J96.22 Acute and chronic respiratory failure with hypercapnia; I87.1 Compression of vein; J44.1 Chronic obstructive pulmonary disease with (acute) exacerbation; G95.89 Other specified diseases of spinal cord; C79.31 Secondary malignant neoplasm of brain; I25.10 Atherosclerotic heart disease of native coronary artery without angina pectoris; I10 Essential (primary) hypertension; R59.0 Localized enlarged lymph nodes; T50.995A Adverse effect of other drugs, medicaments and biological substances, initial encounter; K59.00 Constipation, unspecified; Z95.5 Presence of coronary angioplasty implant and graft; Z99.81 Dependence on supplemental oxygen; Z79.899 Other long term (current) drug therapy; Z79.82 Long term (current) use of aspirin; Z88.0 Allergy status to penicillin; Z87.891 Personal history of nicotine dependence; Z82.5 Family history of asthma and other chronic lower respiratory diseases; Z80.41 Family history of malignant neoplasm of ovary; Z80.2 Family history of malignant neoplasm of other respiratory and intrathoracic organs; Y92.89 Other specified places as the place of occurrence of the external cause

== ENCOUNTER → 2018-06-25 | Outpatient (CLI) | payer MEDICARE ==
[~2018-06-25] MED LIST: ASPIR 8181 MG PO; BISOPROLOL FUMAR5 MG PO; BYSTOLIC 5 MG5 M1 PO; CLONAZEPAM 1 MG1 M1 PO; CLONIDINE0.1 PO; COZAAR 25 MG TA25 M1 PO; MUCINEX600 MG PO; PREDNISONE 10 M10 MG PO; VENTOLIN HFA 1818 GM INH; VITAMIN D5000 UNIT PO
== END ==
LOC: M.MRI 11:18
DX: C34.90 Malignant neoplasm of unspecified part of unspecified bronchus or lung (principal)

== ENCOUNTER → 2018-08-13 | Outpatient (CLI) | payer MEDICARE | LOC: M.MRI 11:00 | DX: M51.27 Other intervertebral disc displacement, lumbosacral region (principal); C34.90 Malignant neoplasm of unspecified part of unspecified bronchus or lung; R93.7 Abnormal findings on diagnostic imaging of other parts of musculoskeletal system ==

== ENCOUNTER → 2018-10-04 | Outpatient (CLI) | payer MEDICARE | LOC: M.RAD 09:11 | DX: N63.11 Unspecified lump in the right breast, upper outer quadrant (principal); C34.90 Malignant neoplasm of unspecified part of unspecified bronchus or lung ==

== ENCOUNTER → 2018-12-14 | Outpatient (CLI) | payer MEDICARE | LOC: M.ULTRA 08:53 | DX: N63.11 Unspecified lump in the right breast, upper outer quadrant (principal) ==

== ENCOUNTER → 2019-04-11 | Outpatient (CLI) | payer MEDICARE | LOC: M.MRI 10:08 | DX: C34.90 Malignant neoplasm of unspecified part of unspecified bronchus or lung (principal); C79.31 Secondary malignant neoplasm of brain ==

== ENCOUNTER → 2019-05-13 | Outpatient (CLI) | payer MEDICARE ==
[2019-05-13 12:02] VITALS: BP 148/73
[2019-05-13 12:03] LABS: APTT 19.8 Seconds (25.0-31.3); INR 1.1; PROTIME 11.4 Seconds (9.20-11.50)
[2019-05-13 12:59] LABS: HEMATOCRIT 44.2 % (37.0-47.0); HEMOGLOBIN 14.6 gm/dL (12.0-15.0); MPV 8.1 fl. (7.2-11.1); RBC 4.7 mil/uL (4.20-5.00); RDW-CV 14.1 % (10.5-14.5); WBC 6.7 thou/uL (4.0-11.0)
[2019-05-13 13:04] LABS: CREATININE 0.7 mg/dL (0.6-1.3); POTASSIUM 3.8 mmol/L (3.5-5.1)
== END | disposition home or self-care (01) ==
LOC: M.INT 04-25 09:00
PROVIDERS: Internal Medicine Hematology & Oncology; Radiology Diagnostic Radiology
DX: Z45.2 Encounter for adjustment and management of vascular access device (principal); J44.9 Chronic obstructive pulmonary disease, unspecified; Z98.890 Other specified postprocedural states; Z79.899 Other long term (current) drug therapy; Z87.891 Personal history of nicotine dependence; Z88.0 Allergy status to penicillin; Z79.01 Long term (current) use of anticoagulants